=== PATIENT | female | born 1995 | race Caucasian/White ===

== ENCOUNTER 2017-01-01 21:51 | Emergency (ER) | payer BC ==
[~2017-01-01] VITALS: Ht 162.6 cm; Wt 63.6 kg
[~2017-01-01 21:51] MED LIST: NO HOME MEDICATIONS
[2017-01-01 22:06] VITALS: BP 142/83; PULSE 86; TEMP 98.7
[2017-01-01] MEDS ORDERED: [UNRECOGNIZED DRUG - OTHER] PO (22:09)
[2017-01-01] MEDS ORDERED: NASACORT OTC NS (22:09)
== END 2017-01-01 23:20 | disposition home or self-care (01) ==
LOC: COL.ER 21:51
DX: S70.362A Insect bite (nonvenomous), left thigh, initial encounter (principal); W59.01XA Bitten by nonvenomous lizards, initial encounter; Y92.007 Garden or yard of unspecified non-institutional (private) residence as the place of occurrence of the external cause
CPT/HCPCS: J8540